=== PATIENT | female | born 1960 | race Caucasian/White ===

== ENCOUNTER 2021-11-10 16:47 | Outpatient (CLI) | payer BC, SELFPAY ==
--- NOTE | ~2021-11-10 | CT_ITS ---
EXAMINATION: CTA chest PE protocol DATE: 11/10/2021 17:35 INDICATION: SOB, hx of PE, off eliquis, feels same as before TECHNIQUE: Computed tomography angiography (CTA) of the chest was performed with 100 mL Omnipaque-350 intravenous contrast timed to evaluate the pulmonary arteries. Coronal maximum intensity projection 3D-reconstructions were created by the technologist. The dose-length product (DLP) was 300.45 mGy-cm. Automated exposure control and iterative reconstruction technique were employed. COMPARISON: None. FINDINGS: Lung parenchyma and airways: Minimal anterior right upper lobe, lingular and right middle lobe scar/a telectasis. Pleura: Unremarkable. Thoracic inlet, axillae and chest wall: Unremarkable. Thoracic aorta: Arch calcifications. Mediastinum: Hiatal hernia. Mildly dilated main pulmonary arteries as can be seen with pulmonary pat rial hypertension. Heart and pericardium: Normal. Coronary artery calcifications: Absent. Upper abdomen: Left adrenal adenoma. Bones: No acute osseous finding. Pulmonary arteries: Study quality: Adequate. No pulmonary emboli detected. IMPRESSION: No CT evidence of acute pulmonary embolus. Reviewed, dictated and finalized at location K.
[2021-11-10 17:25] LABS: Estimated Glomerular Filt Rate > 60
== END 2021-11-10 16:48 | disposition home or self-care (01) ==
PROVIDERS: PCP Family Medicine; Visit Provider Family Medicine
DX: R06.02 Shortness of breath (principal); R06.00 Dyspnea, unspecified; Z86.711 Personal history of pulmonary embolism
CPT/HCPCS: 71275; Q9967

== ENCOUNTER 2021-11-11 07:10 | Outpatient (CLI) | payer BC, SELFPAY ==
--- NOTE | ~2021-11-11 | US_ITS ---
EXAMINATION: US venous doppler [facility] DATE: 11/11/2021 07:33 INDICATION: Personal history of other venous thrombosis and embolism. TECHNIQUE: Grayscale ultrasound images without and with compression and Doppler ultrasound images of the left lower extremity veins were obtained. COMPARISON: None. FINDINGS: The visualized portions of left common femoral vein, profunda (deep) femoral vein, femoral vein, popl iteal vein, peroneal veins, posterior tibial veins, and greater saphenous vein outflow are patent. IMPRESSION: 1. No deep venous thrombosis. Reviewed, dictated and finalized at location A.
== END 2021-11-11 07:11 | disposition home or self-care (01) ==
PROVIDERS: PCP Family Medicine; Visit Provider Family Medicine
DX: Z87.59 Personal history of other complications of pregnancy, childbirth and the puerperium (principal); Z86.718 Personal history of other venous thrombosis and embolism; M79.669 Pain in unspecified lower leg
CPT/HCPCS: 93971

== ENCOUNTER 2021-11-17 08:48 | Outpatient (CLI) | payer BC, SELFPAY ==
[2021-11-17 18:58] LABS: Basophils Absolute Auto 0.1 K/mm3 (0.0-0.1); Basophils Percent Auto 0.8 % (0.2-1.2); Eosinophils Absolute Auto 0.1 K/mm3 (0-0.3); Eosinophils Percent Auto 1.8 % (0-4.4); Hematocrit 38.5 % (37.0-47.0); Hemoglobin 11.4 g/dL (12.0-15.0); Immature Granulocyte Absolute 0.02 K/mm3 (0.00-0.031); Immature Granulocyte Percent A 0.3 % (0-0.5); Lymphocytes Absolute Auto 1.98 K/mm3 (0.9-3.2); Lymphocytes Percent Auto 27.8 % (18.3-44.2); Mean Corpuscular HGB Conc 29.6 g/dl (32-36); Mean Corpuscular Hemoglobin 24.7 pg (26-34); Mean Corpuscular Volume 83.3 fl (80-100); Mean Platelet Volume 10.1 fl (7.4-10.4); Monocytes Absolute Auto 0.5 K/mm3 (0.1-0.6); Monocytes Percent Auto 7.5 % (2.6-8.5); Neutrophils Absolute Auto 4.4 K/mm3 (1.3-6.7); Neutrophils Percent Auto 61.8 % (45.5-73.1); Platelet Count Result 266 k/mm3 (150-375); Red Blood Count 4.62 M/mm3 (4.2-5.4); White Blood Count 7.1 K/mm3 (4.5-10.0)
[2021-11-17 19:58] LABS: Iron 35 ug/dL (37-170)
[2021-11-17 20:07] LABS: Percent Iron Saturation 6 % (20-50)
[2021-11-17 20:16] LABS: Alanine Aminotransferase 27 U/L (6-35); Albumin Level 4.2 g/dL (3.5-5.1); Alkaline Phosphatase 89 U/L (38-126); Anion Gap 11 mmol/L (8-16); Aspartate Amino Transferase 41 U/L (14-36); Bilirubin,Total 0.5 mg/dL (0.2-1.3); Blood Urea Nitrogen 14 mg/dL (7-17); Calcium 9.6 mg/dL (8.4-10.2); Carbon Dioxide 29 mmol/L (22-30); Chloride 100 mmol/L (98-107); Cholesterol 153 mg/dL (0-200); Estimated Glomerular Filt Rate > 60; Glucose 111 mg/dL (65-110); HDL Direct 48 mg/dL; Potassium 3.8 mmol/L (3.4-5.0); Sodium 140 mmol/L (137-145); Triglycerides 103 mg/dL (<150)
[2021-11-17 20:26] LABS: LDL Cholesterol Direct 77 mg/dL
== END 2021-11-17 08:49 | disposition home or self-care (01) ==
LOC: ANHBWCLAB 08:51
PROVIDERS: PCP Family Medicine; Visit Provider Family Medicine
DX: Z00.00 Encounter for general adult medical examination without abnormal findings (principal); E66.3 Overweight; G25.81 Restless legs syndrome
CPT/HCPCS: 36415; 80053; 80061; 83540; 83550; 84443; 85025

== ENCOUNTER 2022-05-04 07:45 | Outpatient (CLI) | payer BC, SELFPAY ==
[2022-05-04 19:46] LABS: Basophils Absolute Auto 0.1 K/mm3 (0.0-0.1); Basophils Percent Auto 1.1 % (0.2-1.2); Eosinophils Absolute Auto 0.2 K/mm3 (0-0.3); Eosinophils Percent Auto 2.3 % (0-4.4); Hemoglobin 13.1 g/dL (12.0-15.0); Immature Granulocyte Absolute 0.02 K/mm3 (0.00-0.031); Immature Granulocyte Percent A 0.3 % (0-0.5); Lymphocytes Absolute Auto 1.89 K/mm3 (0.9-3.2); Lymphocytes Percent Auto 28.5 % (18.3-44.2); Mean Corpuscular HGB Conc 31.2 g/dl (32-36); Mean Corpuscular Hemoglobin 27.6 pg (26-34); Mean Corpuscular Volume 88.6 fl (80-100); Mean Platelet Volume 10.3 fl (7.4-10.4); Monocytes Absolute Auto 0.4 K/mm3 (0.1-0.6); Monocytes Percent Auto 6.6 % (2.6-8.5); Neutrophils Absolute Auto 4.1 K/mm3 (1.3-6.7); Neutrophils Percent Auto 61.2 % (45.5-73.1); Platelet Count Result 275 k/mm3 (150-375); Red Blood Count 4.74 M/mm3 (4.2-5.4); Red Cell Distribution Width 14.8 % (11.5-14.5); White Blood Count 6.6 K/mm3 (4.5-10.0)
[2022-05-04 20:54] LABS: Iron 66 ug/dL (37-170)
[2022-05-04 21:03] LABS: Percent Iron Saturation 13 % (20-50)
[2022-05-04 21:18] LABS: Hepatitis B Surface Antigen Negative (Negative)
[2022-05-04 21:19] LABS: Alanine Aminotransferase 41 U/L (6-35); Albumin Level 4.5 g/dL (3.5-5.1); Alkaline Phosphatase 96 U/L (38-126); Aspartate Amino Transferase 45 U/L (14-36); Bilirubin,Total 0.6 mg/dL (0.2-1.3)
[2022-05-04 21:24] LABS: HAV RESULT Negative (Negative); Hepatitis B Core IgM Result Negative (Negative)
[2022-05-04 21:35] LABS: Hepatitis C Virus Antibody Negative (Negative)
== END 2022-05-04 07:46 | disposition home or self-care (01) ==
LOC: ANHBWCLAB 07:46
PROVIDERS: PCP Family Medicine; Visit Provider Family Medicine
DX: Z00.00 Encounter for general adult medical examination without abnormal findings (principal); D64.9 Anemia, unspecified; R73.9 Hyperglycemia, unspecified; R74.8 Abnormal levels of other serum enzymes; R73.03 Prediabetes
CPT/HCPCS: 36415; 80074; 80076; 83036; 83540; 83550; 85025

== ENCOUNTER 2022-11-01 07:39 | Outpatient (CLI) | payer BC, SELFPAY ==
--- NOTE | ~2022-11-01 | MM_ITS ---
EXAMINATION: MM screening shanita BI w felipe HISTORY: Screening TECHNIQUE: Craniocaudal and mediolateral oblique 3-D tomosynthesis images were obtained and synthetic 2-D images were generated. CAD analysis was submitted and interpreted. COMPARISON: No prior mammogram is available for comparison at this institution. BREAST PARENCHYMAL COMPOSITION: Breast composed of scattered areas of fibroglandular density FINDINGS: There are bilateral breast masses involving the lower outer quadrant of the right breast an d lower outer quadrant of the left breast. There are no suspicious calcifications or architectural di stortion. IMPRESSION: 1. Bilateral breast masses which are partially obscured by fibroglandular tissue. 2. Additional mammographic views and possible breast ultrasound are recommended. BI-RADS Category 0: Incomplete: Needs additional imaging evaluation. Reviewed, dictated and finalized at location A. IMPRESSION: 1. Bilateral breast masses which are partially obscured by fibroglandular tissu e. 2. Additional mammographic views and possible breast ultrasound are recommended . BI-RADS Category 0: Incomplete: Needs additional imaging evaluation.
== END 2022-11-01 07:40 | disposition home or self-care (01) ==
PROVIDERS: PCP Family Medicine; Visit Provider Student in an Organized Health Care Education/Training Program
DX: Z12.31 Encounter for screening mammogram for malignant neoplasm of breast (principal); N63.23 Unspecified lump in the left breast, lower outer quadrant; N63.13 Unspecified lump in the right breast, lower outer quadrant
CPT/HCPCS: 77063; 77067

== ENCOUNTER 2022-12-01 07:31 | Outpatient (CLI) | payer BC, SELFPAY ==
--- NOTE | ~2022-12-01 | MMUS_ITS ---
EXAMINATION: MM diagnostic shanita BI w felipe, US breast BI complete HISTORY: Bilateral breast masses reported on 11/01/2022 screening mammogram TECHNIQUE: Additional 3-D tomosynthesis images of both breasts were performed and synthetic 2-D image s were generated. CAD analysis was submitted and interpreted. High resolution complete bilateral gurdeep st ultrasound examination including all 4 quadrants and subareolar areas was performed. COMPARISON: 11/01/2022 bilateral screening mammogram FINDINGS: MAMMOGRAPHIC FINDINGS: Right breast: No suspicious mass, architectural distortion, malignant calcification, skin thickening or retraction is detected. Left breast: There is a biopsy marker on the left; history of prior benign left breast biopsy. 3.5 mm circumscribed rounded mass in the posterior upper outer left breast, benign in appearance 7.4 mm circumscribed mass in the posterior outer mid left breast, benign in appearance. No suspicious mass, architectural distortion, malignant calcification, skin thickening or retraction is detected. ULTRASOUND: No suspicious mass or shadowing of either breast is detected. Right breast: 3:00 3 cm from nipple: There is a cluster of cysts, without internal vascularity or posterior shadowi ng, benign in appearance. Left breast: 1:00 4.5 cm from nipple: Parallel circumscribed 3.3 x 5.3 x 3.9 mm circumscribed sonolucency without internal vascularity or posterior shadowing, benign in appearance 2:00 3.5 cm from nipple: 3 x 3.4 x 3.8 mm circumscribed hypoechoic lesion without internal vascularit y or posterior shadowing 2:00 subareolar: 2.5 x 3.7 x 3.2 mm circumscribed septated cyst without internal vascularity or poste rior shadowing 3:00 5 cm from nipple: 4.8 x 5.8 x 5.1 mm circumscribed sonolucency with through transmission, benign in appearance 4:00 5 cm from nipple: 4 x 5 mm cyst 7:00 2 cm from nipple: Parallel circumscribed hypoechoic solid lesion measuring 3.9 x 8.2 x 8.1 mm wi thout internal vascularity or posterior shadowing. IMPRESSION: 1. Benign findings 2. Routine mammographic screening is recommended BI-RADS Category 2: Benign finding(s). Reviewed, dictated and finalized at location A. IMPRESSION: 1. Benign findings 2. Routine mammographic screening is recommended BI-RADS Category 2: Benign finding(s).
== END 2022-12-01 07:32 ==
PROVIDERS: PCP Student in an Organized Health Care Education/Training Program; Visit Provider Student in an Organized Health Care Education/Training Program
DX: R92.8 Other abnormal and inconclusive findings on diagnostic imaging of breast (principal)
CPT/HCPCS: 76641; 77062; 77066; G0279

== ENCOUNTER 2023-12-25 07:11 | Outpatient (CLI) | payer BC, SELFPAY ==
--- NOTE | ~2023-12-25 | MM_ITS ---
EXAMINATION: MM screening shanita BI w felipe HISTORY: Screening TECHNIQUE: Craniocaudal and mediolateral oblique 3-D tomosynthesis images were obtained and synthetic 2-D images were generated. CAD analysis was submitted and interpreted. COMPARISON: Comparison to multiple prior studies sequentially, with oldest reviewed study dated 11/01. BREAST PARENCHYMAL COMPOSITION: Not dense: There are scattered areas of fibroglandular density. FINDINGS: There is no evidence of suspicious mass, calcification, or architectural distortion to sugg est malignancy in either breast. There has been no suspicious interval change. IMPRESSION: 1. No mammographic evidence of malignancy. 2. Recommend routine screening mammography in one year. BI-RADS Category 1: Negative Reviewed, dictated and finalized at location B.
== END 2023-12-25 07:12 | disposition home or self-care (01) ==
LOC: ANHIMG 07:13
PROVIDERS: PCP Nurse Practitioner Adult Health; Visit Provider Student in an Organized Health Care Education/Training Program
DX: Z12.31 Encounter for screening mammogram for malignant neoplasm of breast (principal)
CPT/HCPCS: 77063; 77067

== ENCOUNTER 2024-05-31 08:29 | Emergency (ER) | payer BC, SELFPAY ==
[2024-05-31 08:36] VITALS: BP 133/99; PULSE 89; RESP 20; TEMP 36.9; O2SAT 96
--- NOTE | 2024-05-31 08:36 | ED_ITS ---
HPI - URI/Sore Throat General Chief Complaint: Upper Respiratory Infection Stated Complaint: throat/nose/cough Time Seen by Provider: 05/31/24 09:22 Source: patient and RN notes reviewed Mode of arrival: ambulatory Limitations: no limitations History of Present Illness HPI Narrative: 64-year-old female presents with concern for fever, cough, wheezing, sore throat, nasal drainage. Reports symptoms started Monday morning. She reports using Chloraseptic MD elicited complaint: cough and sore throat Related Data Allergies Allergy/AdvReac Type Severity Reaction Status Date / Time lisinopril Allergy Intermediate Rash Verified 05/31/24 09:21 Penicillins Allergy Mild rash Verified 05/31/24 09:21 Chloraprep Allergy Mild rash Uncoded 05/31/24 09:21 Review of Systems Review of Systems: CONSTITUTIONAL: Reports malaise, fever. EYES: Denies visual changes, redness, or discharge. ENT: Reports rhinorrhea, congestion, and sore throat. CARDIOVASCULAR: Denies chest pain, palpitations, or edema. RESPIRATORY: Reports cough and wheezing. Denies dyspnea. GASTROINTESTINAL: Denies abdominal pain, nausea, vomiting, diarrhea SKIN: Denies rash or itching. MUSCULOSKELETAL: Denies myalgia. NEUROLOGIC: Denies headache. All systems reviewed & are unremarkable except as noted in HPI and below PMFSH Past Medical History Medical History (Updated 05/31/24 @ 09:29 by Mary Carmen Lepe NP) Acute sinus infection Screening for breast cancer Hypertension Otitis media Elevated BP without diagnosis of hypertension Hyperglycemia Dyspnea Surgical History Surgical History History of hysterectomy Family History Family History Mother Hypertension Sibling Disorder of thyroid Grandparent Breast cancer History of ETOH abuse Social History Social History Smoking status: Never smoker Alcohol intake: never Substance use: never Substance use type: does not use Lack of Transportation: No Lack of Food: Never True Current Housing: I Have Housing Concerned About Future Housing: No Difficulty Paying Gas/Electric Bills: No Difficulty Paying for Meds: No Currently Unemployed: No Education: Decline to Answer Difficulty w/ Childcare or Family Care: Decline to Answer Living arrangements: alone Occupation/Education: occupation Additional occupation/education comments: [employer] Gender identity (if verbalized by the patient): Female Comments At time of signature, agree with nursing past medical, surgical, social and family history. There is no relevant family history pertinent to the presenting complaint Exam Narrative: GENERAL: Well-appearing, well-nourished, and in no acute distress. HEAD: Normocephalic EYES: PERRLA, conjunctivae clear ENT: Nares clear. Mucous membranes moist. TM pearly pinon with sharp light reflex bilaterally; no tragal tenderness. Oropharynx not erythematous without lesions. Tonsils not enlarged and without exudate, no drooling, no hoarseness, no trismus, uvula midline. NECK: Supple. No lymphadenopathy CHEST: Scattered wheeze, otherwise Clear to auscultation, breath sounds equal. No rhonchi, rales, or stridor. No respiratory distress, speaks in full sentences. HEART: Regular rate and rhythm. No murmur heard. SKIN: Warm, dry, no rash. NEURO: Alert and oriented x3. PSYCH: Normal mood and affect Course Course Emergency Course: Patient is aware of diagnosis, understands and agrees to treatment plan. Anticipatory guidance given. Patient agrees to follow-up as directed and is aware of reasons to seek care at the emergency department. Portions of this record may have been created with voice recognition software Level of Care: Express Care Visit Vital Signs Vital signs: Vital Signs Temperature 98.4 F 05/31/24 08:36 Pulse Rate 89 05/31/24 08:36 Respiratory Rate 20 05/31/24 08:36 Blood Pressure 133/99 H 05/31/24 08:36 Pulse Oximetry 96 05/31/24 08:36 Oxygen Delivery Room Air 05/31/24 08:36 Temperature 98.4 F 05/31/24 08:36 Pulse Rate 89 05/31/24 08:36 Respiratory Rate 20 05/31/24 08:36 Blood Pressure 133/99 H 05/31/24 08:36 Pulse Oximetry 96 05/31/24 08:36 Oxygen Delivery Room Air 05/31/24 08:36 Reviewed. MDM - URI/Sore Throat MDM Narrative Medical decision making narrative: Differential diagnosis considered: Harper virus, strep pharyngitis, allergic rhinitis, upper respiratory tract infection, sinusitis, rhinosinusitis, nasopharyngitis. viral pharyngitis, otitis media, otitis externa, pneumonia, bronchitis, viral cough syndrome, viral syndrome, and influenza. Exam findings show no acute concerns or changes; patient is non-toxic appearing and is in no distress. Patient is appropriate for outpatient treatment and follow-up. Lab Data Attestation: I reviewed the patient's lab results. Critical Care Time Critical Care Time Critical Care Time: No Discharge Plan Discharge Clinical Impression: Influenza A Patient Disposition: Home, Self-Care Condition: Stable Instructions: Influenza (ED) Additional Instructions: -Take strict precautions to prevent the spread of your virus. Be diligent about covering your cough (even when you are alone) and washing your hands frequently. -You may contagious until you have been symptom and/or fever free for 24 hours without fever reducing medicine -Alternate Ibuprofen and Tylenol for pain and fever relief (per package directions) -Drink plenty of fluid - drink fluid with electrolytes such as Gatorade or other oral re-hydration solution. Avoid caffeine, which can make dehydration worse. -Get plenty of rest to help your body heal. -Use a cool mist humidifier for chest and nasal congestion. -Eat RAW honey or use cough drops to ease throat discomfort -Do not smoke or expose children to secondhand smoke -Wash your hands frequently. -Please follow-up with your primary care doctor in the next 1-2 days if your symptoms do not improve. -If you have any worsening of symptoms or any other concerns please go to the ED immediately. -Please take medications as prescribed and continue taking your home medications as usual. Patient Language: Tristanian Prescriptions: New oseltamivir 75 mg capsule 75 mg PO BID 5 Days Qty: 10 0RF methylprednisolone [Medrol (Domenic)] 4 mg tablets,dose pack See Rx Instructions .ROUTE .COMPLEX Qty: 21 0RF Rx Instructions: orally per package directions albuterol sulfate 90 mcg/actuation HFA aerosol inhaler 2 puff INHALATION QID PRN (Reason: shortness of breath or wheezing) Qty: 8.5 0RF ipratropium bromide 21 mcg (0.03 %) spray,non-aerosol 2 spray NASAL TID PRN (Reason: nasal drainage) Qty: 30 0RF Rx Instructions: administer into each nostril No Action fluticasone propionate 50 mcg/actuation spray,suspension 2 spray intranasal BID Qty: 3 3RF ferrous sulfate 325 mg (65 mg iron) tablet 325 mg PO DAILY Qty: 90 1RF Follow-up/Referrals: Sarahi Woodward APRN [Primary Care Provider] - Stand Alone Forms: Work/School Release IP Time of Disposition: 09:31
[2024-05-31 09:32] LABS: EDCOVIDSCREEN Negative (Negative); EDINFLUASCREEN Positive (Negative); EDINFLUBSCREEN Negative (Negative); EDSTREPNEGPOS1 Negative (Negative)
== END 2024-05-31 09:40 | disposition home or self-care (01) ==
PROVIDERS: Emergency Provider Nurse Practitioner; PCP Nurse Practitioner Adult Health
DX: J10.1 Influenza due to other identified influenza virus with other respiratory manifestations (principal); Z20.822 Contact with and (suspected) exposure to COVID-19; I10 Essential (primary) hypertension
CPT/HCPCS: 87081; 87426; 87804; 87880; 99213; G0463

== ENCOUNTER 2024-06-04 15:39 | Outpatient (CLI) | payer BC, SELFPAY ==
--- NOTE | ~2024-06-04 | XR_ITS ---
CHEST RADIOGRAPH, PA AND LATERAL CLINICAL HISTORY: Cough, wheezing, sob . COMPARISON: None TECHNIQUE: PA and lateral views of the chest. FINDINGS The cardiomediastinal silhouette is unremarkable. Blunting of the right costophrenic sulcus suggesting a small right-sided pleural effusion. Peribronchial thickening is also identified. The remainder of the lungs are clear. IMPRESSION: Small right-sided pleural effusion and peribronchial thickening without focal infiltrate. Reviewed, dictated and finalized at location A. IMPRESSION: Small right-sided pleural effusion and peribronchial thickening without focal i nfiltrate.
== END 2024-06-04 15:40 | disposition home or self-care (01) ==
LOC: ANHBWCIMG 15:41
PROVIDERS: PCP Nurse Practitioner Adult Health; Visit Provider Nurse Practitioner Adult Health
DX: J10.1 Influenza due to other identified influenza virus with other respiratory manifestations (principal); J90 Pleural effusion, not elsewhere classified; R91.8 Other nonspecific abnormal finding of lung field
CPT/HCPCS: 71046

== ENCOUNTER 2024-06-04 17:20 | Emergency (ER) | payer BC, SELFPAY ==
[2024-06-04 17:24] VITALS: BP 177/77; PULSE 79; RESP 20; TEMP 36.4; O2SAT 95
--- NOTE | 2024-06-04 17:49 | ED_ITS ---
HPI - URI/Sore Throat General Chief Complaint: Upper Respiratory Infection Stated Complaint: wheezing Time Seen by Provider: 06/04/24 17:50 Source: patient Mode of arrival: ambulatory Limitations: no limitations History of Present Illness HPI Narrative: 64-year-old female with a history of hypertension and PE (with covid) presented for complaint of wheezing. Onset 6 days, but states the wheezing kept her up last night. Patient was seen in clinic 4 days ago, tested positive for influenza. Patient also reported wheezing at that time; given albuterol inhaler and Medrol pack which she says she has completed. Pt used the albuterol inhaler just prior to arrival, and was advised to use a toilet paper roll as a spacer on the inhaler because she did not think the med was working. Pt contacted her PCP today regarding the wheezing, CXR completed and pt was told she has fluid on the lung and was advised to go to the ER to evaluate for CHF. Pt states I do not have CHF. Pt completed 3 months of anticoagulation for PE in 2020. Denies chest pain, palpitations, dizziness, fatigue, n/v/d/f/c. Pt was also prescribed tamiflu 05/31 but did not fill the Rx. Related Data Allergies Allergy/AdvReac Type Severity Reaction Status Date / Time lisinopril Allergy Intermediate Rash Verified 05/31/24 09:21 Penicillins Allergy Mild rash Verified 05/31/24 09:21 Chloraprep Allergy Mild rash Uncoded 05/31/24 09:21 Review of Systems Review of Systems: CONSTITUTIONAL: Denies body aches, fever, chills, or sweats. EYES: Denies visual changes, redness, or discharge. ENT: Denies rhinorrhea, congestion, sore throat, or otalgia. CARDIOVASCULAR: Denies chest pain, palpitations, or edema. RESPIRATORY: Reports cough, wheezing. Denies sob GASTROINTESTINAL: Denies abdominal pain, nausea, vomiting, or diarrhea. MUSCULOSKELETAL: Denies back pain, joint pain, or myalgia. NEUROLOGIC: Denies headache, numbness, tingling, or weakness. All systems reviewed & are unremarkable except as noted in HPI and below PMFSH Past Medical History Medical History (Updated 06/04/24 @ 18:21 by Maci Hopkins, JONELLE) History of pulmonary embolism Acute sinus infection Screening for breast cancer Hypertension Otitis media Elevated BP without diagnosis of hypertension Hyperglycemia Dyspnea Surgical History Surgical History History of hysterectomy Family History Family History Mother Hypertension Sibling Disorder of thyroid Grandparent Breast cancer History of ETOH abuse Social History Social History Smoking status: Never smoker Alcohol intake: never Substance use: never Substance use type: does not use Lack of Transportation: No Lack of Food: Never True Current Housing: I Have Housing Concerned About Future Housing: No Difficulty Paying Gas/Electric Bills: No Difficulty Paying for Meds: No Currently Unemployed: No Education: Decline to Answer Difficulty w/ Childcare or Family Care: Decline to Answer Living arrangements: alone Occupation/Education: occupation Additional occupation/education comments: [employer] Gender identity (if verbalized by the patient): Female Comments At time of signature, I have reviewed and agree with nursing past medical, surgical, social and family history unless otherwise noted. Please see nursing chart for further information. There is no relevant family history pertinent to the presenting complaint Exam Narrative: GENERAL: Well-appearing, in no acute distress. EYES: No redness or drainage. Conjunctivae normal. ENT: Mucous membranes pink and moist. CHEST: No respiratory distress. diminished right base, few scattered faint crackles HEART: Regular rate and rhythm. No murmur appreciated. ABDOMEN: Soft, nontender, nondistended, normal active bowel sounds. SKIN: Warm, dry, Capillary refill normal. Normal skin turgor. NEURO: Alert and oriented x3. Gait steady. PSYCH: Normal affect. Course Course Emergency Course: Patient is aware of diagnosis, understands and agrees to treatment plan. Anticipatory guidance given. Patient agrees to follow-up as directed and is aware of reasons to seek care at the emergency department. Portions of this record may have been created with voice recognition software Level of Care: Express Care Visit Vital Signs Vital signs: Vital Signs Temperature 97.6 F 06/04/24 17:24 Pulse Rate 79 06/04/24 17:24 Respiratory Rate 20 06/04/24 17:24 Blood Pressure 177/77 H 06/04/24 17:24 Pulse Oximetry 95 06/04/24 17:24 Oxygen Delivery Room Air 06/04/24 17:24 Temperature 97.6 F 06/04/24 17:24 Pulse Rate 79 06/04/24 17:24 Respiratory Rate 20 06/04/24 17:24 Blood Pressure 177/77 H 06/04/24 17:24 Pulse Oximetry 95 06/04/24 17:24 Oxygen Delivery Room Air 06/04/24 17:24 MDM - URI/Sore Throat MDM Narrative Medical decision making narrative: Pt reports wheezing for 6 days, she has completed steroid and using albuterol inhaler TID. CXR as ordered by PCP shows Small right-sided pleural effusion and peribronchial thickening without focal infiltrate. Pt denies cp, palpitations, dizziness, fatigue or fever. Pt's O2 94-96%RA, she states her home O2 was 97%. She used albuterol inhaler just user acceptance tester. She has a hx of PE and is advised to go to the ER for further evaluation at this time. Pt declines. She states she does not feel like she did with her last PE. Pt also says she 'does not have CHF.' Pt would like to try abx. Advised at length the risks and possible etiologies associated with pleural effusion. She states she will monitor her O2 level with pulse ox. She is instructed to notify her pcp in the morning as they advised ER as well. The patient is AA&Ox3, free from distracting injury. The patient has demonstrated concrete thinking/reasoning, has maintained an strategy specialist/reasonable conversation, appears to have intact insight/judgment/reason and therefore has capacity to make decisions. Given the patients presentation, we communicated our concern for pleural effusion on CXR in laymans terms. The patient verbalized an understanding. The patient is aware the evaluation is incomplete & many tro ublesome conditions have not been r/o. We have discussed the need for further ED evaluation as she was advised by PCP today. We have discussed the range of possible dx, potential testing & treatment options. Our discussions included the potential outcomes of leaving AMA, including worsening of their condition, becoming permanently disabled/in pain/critically ill, or . Despite these efforts, we were unable to convince the pt to go to the ER. We have attempted to offer tx/rx/guidance for any dangerous conditions which are most likely and/or dangerous. We have answered all questions and have implored the patient to go to ER [facility] to complete the w/u. A staff member witnessed the patient consenting to AMA. Differential Diagnosis Differential diagnosis: Likely other (Angioedema, perforation, asthma, pneumonia, PE, tension pneumothorax, cardiac tamponade VA, pericarditis, pleural effusion, CHF, bronchitis, cardiac arrhythmia) Discharge Plan Discharge Clinical Impression: Pleural effusion Patient Disposition: Left Against Medical Advice Condition: Stable Instructions: Antibiotic Form, Pleural Effusion (DC) Additional Instructions: You were advised to transfer to the ER and you decline at this time. You were made aware of the risk of refusal including worsening of your condition and . Report to the ER immediately by calling 911 for any worsening symptoms. monitor your oxygenation at home hourly call your primary care provider in the morning to update them on your symptoms use your albuterol inhaler as previously prescribed. Patient Language: Palauan Prescriptions: New azithromycin [Zithromax Z-Domenic] 250 mg tablet See Rx Instructions .ROUTE .COMPLEX Qty: 6 0RF Rx Instructions: For 250 mg dose pack: take 500 mg today (day 1), then 250 mg for 4 days (days 2-5) (DME) Space Chamber Spacer See Rx Instructions .Route Qty: 1 0RF Rx Instructions: As directed No Action methylprednisolone [Medrol (Domenic)] 4 mg tablets,dose pack See Rx Instructions .ROUTE .COMPLEX Qty: 21 0RF Rx Instructions: orally per package directions albuterol sulfate 90 mcg/actuation HFA aerosol inhaler 2 puff INHALATION QID PRN (Reason: shortness of breath or wheezing) Qty: 8.5 0RF ipratropium bromide 21 mcg (0.03 %) spray,non-aerosol 2 spray NASAL TID PRN (Reason: nasal drainage) Qty: 30 0RF Rx Instructions: administer into each nostril fluticasone propionate 50 mcg/actuation spray,suspension 2 spray intranasal BID Qty: 3 3RF ferrous sulfate 325 mg (65 mg iron) tablet 325 mg PO DAILY Qty: 90 1RF Follow-up/Referrals: Sarahi Woodward APRN [Primary Care Provider] - Time of Disposition: 18:07
[2024-06-04 17:52] VITALS: O2SAT 97
== END 2024-06-04 18:11 | disposition left against medical advice (07) ==
PROVIDERS: Emergency Provider Nurse Practitioner Family; PCP Nurse Practitioner Adult Health
DX: J90 Pleural effusion, not elsewhere classified (principal); I10 Essential (primary) hypertension; Z86.711 Personal history of pulmonary embolism; Z86.16 Personal history of COVID-19
CPT/HCPCS: 99213; G0463

== ENCOUNTER 2025-01-15 07:29 | Outpatient (CLI) | payer BC, SELFPAY ==
--- NOTE | ~2025-01-15 | MM_ITS ---
EXAMINATION: MM screening shanita BI w felipe HISTORY: Screening TECHNIQUE: Craniocaudal and mediolateral oblique 3-D tomosynthesis images were obtained and synthetic 2-D images were generated. CAD analysis was submitted and interpreted. COMPARISON: Comparison to multiple prior studies sequentially, with oldest reviewed study dated 11/01/2022. BREAST PARENCHYMAL COMPOSITION: Not dense: There are scattered areas of fibroglandular density. FINDINGS: There is a developing mass in the upper outer quadrant of the left breast which is slightly larger and more dense than prior studies. The right breast is stable without evidence for malignancy. IMPRESSION: 1. Developing left breast mass upper outer quadrant, middle third. 2. Additional mammographic views and possible breast ultrasound are recommended. BI-RADS Category 0: Incomplete: Needs additional imaging evaluation. Reviewed, dictated and finalized at location C. IMPRESSION: 1. Developing left breast mass upper outer quadrant, middle third. 2. Additional mammographic views and possible breast ultrasound are recommended . BI-RADS Category 0: Incomplete: Needs additional imaging evaluation.
--- NOTE | ~2025-01-15 | DEXA_ITS ---
Bone Density Report Name: DONI SPARKS Age: 64 Sex: Female Ethnicity: White Date of : 1960 Indication: postmenopausal; screening for osteoporosis; height loss; hysterectomy; Referring Provider: OMAIRA SINGH Study: Bone densitometry was performed. Exam Date: January 15, 2025 Accession number: [id number] Bone Density: Region BMD T-score Z-score Classification AP Spine(L1-L4) 0.821 -2.1 -0.2 Osteopenia Femoral Neck (Left) 0.651 -1.8 -0.2 Osteopenia Total Hip (Left) 0.781 -1.3 0.0 Osteopenia Femoral Neck (Right) 0.629 -2.0 -0.4 Osteopenia Total Hip (Right) 0.814 -1.1 0.3 Osteopenia Total Hip Mean 0.798 -1.2 0.2 Osteopenia World Health Organization criteria for BMD impression classify patients as: Normal (T-score at or above -1.0), Osteopenia (T-score between -1.0 and -2.5), or Osteoporosis (T-score at or below -2.5). 10-year Fracture Risk(1): Major Osteoporotic Fracture 10.0% Hip Fracture 1.5% Reported Risk Factors: [place] (), Neck BMD=0.629, BMI=35.3 (1) FRAX(R) Version 3.08. Fracture probability calculated for an untreated patient. Fracture probability may be lower if the patient has received treatment. Clinical Information Provided by Patient: Has used the following medications: Vitamin D, Calcium Has the following medical conditions: Hysterectomy Patient maximum height was 66.5 Menopause Age: 33 Drinks caffeinated beverages Onset of menses at age 10 Number of children 1 Impression: The patient has low bone mass, based on the Total Spine T-score. The patient has an estimated ten-year risk of hip fracture of 1.5% and an estimated ten-year risk of major fracture of 10%, based on the WHO FRAX algorithm. Discussion: BONE DENSITY IS LOW AT ONE OR MORE SKELETAL SITES. This patient's lowest T-score is low at one or more skeletal sites. It meets the World Health Organization's (WHO) criteria for ?low bone mass? (T-score between -1.0 and -2.5). The patient's 10-year risk of fracture as calculated by FRAX is less than the threshold where pharmacological therapy is recommended by the National Osteoporosis Foundation (NOF). However, all treatment decisions require clinical judgment and consideration of individual patient factors, including patient preferences, comorbidities, previous drug use, risk factors not captured in the FRAX model (e.g., frailty, falls, vitamin D deficiency, increased bone turnover, interval significant decline in bone density) and possible under or overestimation of fracture risk by FRAX. The patient should follow a healthful lifestyle (good nutrition with adequate calcium and vitamin D, and appropriate weight-bearing exercise). Follow-Up: Consider repeating this study in 2 to 3 years to reassess this patient's status, or sooner if there is some new clinical indication. Reported by: XUAN on 01/15/2025 8:20:00 AM. Reviewed, dictated and finalized at location A.
== END 2025-01-15 07:30 | disposition home or self-care (01) ==
LOC: ANHFOHIMG 07:30
PROVIDERS: PCP Nurse Practitioner Adult Health; Visit Provider Student in an Organized Health Care Education/Training Program
DX: Z12.31 Encounter for screening mammogram for malignant neoplasm of breast (principal); R92.8 Other abnormal and inconclusive findings on diagnostic imaging of breast; M85.89 Other specified disorders of bone density and structure, multiple sites; Z78.0 Asymptomatic menopausal state
CPT/HCPCS: 77063; 77067; 77080

== ENCOUNTER 2025-03-03 12:52 | Outpatient (CLI) | payer BC, SELFPAY ==
--- NOTE | ~2025-03-03 | MMUS_ITS ---
EXAMINATION: MM diagnostic shanita LT w felipe, US breast LT limited INDICATION: 63-year old female; BI-RADS 0, left breast finding COMPARISON: 01/15/2025 TECHNIQUE: Digital breast tomosynthesis True lateral and spot compression CC and MLO views of the LEFT breast were obtained with computer-aided detection to assist in interpretation of the study. FINDINGS: There are scattered areas of fibroglandular density. The mass of concern in the outer left breast persists with circumscribed margins. Ultrasound was performed for further evaluation. LEFT BREAST ULTRASOUND FINDINGS: Targeted evaluation of the area of concern was completed. There is a 0.5 x 0.48 x 0.45 cm anechoic mass at 4:00 in the LEFT breast that correlates to the area of Mammographic finding. There are additional smaller cysts scattered within the general area. IMPRESSION: Benign LEFT breast cyst correlates to mammographic finding. No further investigation necessary. RECOMMENDATION: Annual screening bilateral mammography in 12 months BI-RADS 2, BENIGN Reviewed, dictated and finalized at location B. [employer] IMPRESSION: Benign LEFT breast cyst correlates to mammographic finding. No further investig ation necessary. RECOMMENDATION: Annual screening bilateral mammography in 12 months BI-RADS 2, BENIGN
== END 2025-03-03 12:53 | disposition home or self-care (01) ==
LOC: ANHFOHIMG 12:53
PROVIDERS: PCP Nurse Practitioner Adult Health; Visit Provider Student in an Organized Health Care Education/Training Program
DX: N63.42 Unspecified lump in left breast, subareolar (principal)
CPT/HCPCS: 76642; 77061; 77065; G0279